=== PATIENT | male | born 1960 | race Caucasian/White ===

== ENCOUNTER 2023-08-16 10:44 | Outpatient (CLI) | payer MEDICAID | END 2023-08-16 23:59 | disposition home or self-care (01) | LOC: RT 10:44 | PROVIDERS: ATTEND Family Medicine | DX: J44.1 Chronic obstructive pulmonary disease with (acute) exacerbation (principal) | CPT/HCPCS: 94010 ==

== ENCOUNTER → 2023-08-22 | Outpatient (CLI) | payer MEDICAID | END | disposition home or self-care (01) | LOC: RAD 15:15 → EDUNIT# 16:00 | PROVIDERS: ATTEND Family Medicine | DX: K40.90 Unilateral inguinal hernia, without obstruction or gangrene, not specified as recurrent (principal); N43.2 Other hydrocele | CPT/HCPCS: 76881 ==

== ENCOUNTER 2023-12-05 07:00 | Day surgery (SDC) | payer MEDICAID ==
[2023-11-28 10:59] LABS: EOSINOPHILS # (AUTO) 0.1 X10'3 (0-0.9); LYMPHOCYTES # (AUTO) 0.8 X10'3 (1.1-4.8); MEAN CORPUSCULAR HEMOGLOBIN 30.8 PG (27.0-31.0); MONOCYTES # (AUTO) 0.4 X10'3 (0-0.9); NEUTROPHILS # (AUTO) 3.5 X10'3 (1.8-7.7)
[2023-11-28 11:01] LABS: EOSINOPHILS % (AUTO) 2.9 % (0-6); MEAN CORPUSCULAR HGB CONC 34.5 g/dL (33.0-36.5); MEAN CORPUSCULAR VOLUME 89.3 FL (78-98); MONOCYTES % (AUTO) 8.7 % (2-12); NEUTROPHILS % (AUTO) 71.4 % (42-75); PRE OP HEMATOCRIT 49.6 % (42.0-52.0); PRE OP HEMOGLOBIN 17.1 g/dL (14.0-17.9); PRE OP PLATELET COUNT 213 X10'3 (140-440); PRE OP WHITE BLOOD COUNT 4.9 10'3 (4.8-10.8); RED BLOOD COUNT 5.55 X10'6 (4.70-6.10); RED CELL DISTRIBUTION WIDTH 13.3 % (11.5-14.5)
[2023-11-28 11:28] LABS: ALBUMIN 4.2 G/DL (3.4-5.0); ALBUMIN/GLOBULIN RATIO 1.2 (1.1-1.5); ALKALINE PHOSPHATASE 88 IU/L (46-116); BLOOD UREA NITROGEN 11 MG/DL (7-18); BUN/CREATININE RATIO 12.8 (10.0-20.0); CALCIUM 9.3 MG/DL (8.5-10.1); CHLORIDE 107 MMOL/L (99-107); CREATININE 0.86 MG/DL (0.60-1.10); PRE OP ANION GAP 5 (8-16); PRE OP AST 35 U/L (10-37); PRE OP GLUCOSE 94 MG/DL (70-104); PRE OP POTASSIUM 4.4 MMOL/L (3.4-5.1); PRE OP SODIUM 142 MMOL/L (135-145); TOTAL CARBON DIOXIDE 29.8 MMOL/L (24-32); TOTAL PROTEIN 7.6 G/DL (6.4-8.2); eGFR 90 ML/MIN
[2023-11-28 11:31] LABS: PRE OP ALT 85 U/L (30-65)
[~2023-12-05] VITALS: Ht 175.3 cm; Wt 86.0 kg
[2023-12-05] VITALS (20 sets, daily range): BP systolic 121–173; BP diastolic 81–108; PULSE 82–98; RESP 12–18; TEMP 98.4; O2SAT 90–99
[2023-12-05] MEDS: cefazolin 2gm/D5W 100mL 100 ML IV ONE (05:30)
[~2023-12-05 07:00] MED LIST: ALBU8HFA INH
[2023-12-05] MEDS: famotidine 20mg tablet PO ONE (07:58)
[2023-12-05] MEDS: ringers solution, lacted 1,000 ML IV SCH (07:58)
[2023-12-05] MEDS ORDERED: propofol inj 20 ML IV ONE (10:16)
[2023-12-05] MEDS ORDERED: rocuronium 10mg/ml inj IV ONE (10:16)
[2023-12-05] MEDS ORDERED: fentaNYL/PF 50MCG/1 ML 2ML syringe ONE (10:16)
[2023-12-05] MEDS ORDERED: midazolam 1 mg/ML 2ml injection ONE (10:16)
[2023-12-05] MEDS ORDERED: sevoflurane 250ml liquid IH ONE (10:21)
[2023-12-05] MEDS: BUPIVAcaine 2.5mg/ml inj 50ml vial (contains preservative) ONE (11:18)
[2023-12-05] MEDS: LIDOcaine 1% (10mg/ml)w/preservative inj. 20ml MDV ONE (11:19)
[2023-12-05] MEDS ORDERED: morphine 4 MG/ML inj SYRINge IV PRN (11:25)
[2023-12-05] MEDS ORDERED: ringers solution, lacted 1,000 ML IV SCH (11:25)
[2023-12-05] MEDS ORDERED: meperidine/PF 25mg/ml syringe IV PRN ×2 (11:25)
[2023-12-05] MEDS ORDERED: ondansetron/PF 4mg/2ml inj IV PRN (11:25)
[2023-12-05] MEDS ORDERED: morphine 2 MG/ML inj. syringe IV PRN (11:25)
[2023-12-05] MEDS ORDERED: proCHLORperazine 10 MG/2 ml inj IV PRN (11:25)
[2023-12-05] MEDS ORDERED: ondansetron/PF 4mg/2ml inj ONE (11:50)
[2023-12-05] MEDS ORDERED: dexamethasone sod phosphate 4mg/ml inj. ONE (11:50)
[2023-12-05] MEDS ORDERED: neostigmine methylsulfate 1 MG/ML 10ml vial ONE (11:51)
[2023-12-05] MEDS ORDERED: glycopyrrolate 0.2mg/ml inj ONE (11:52)
[2023-12-05] MEDS ORDERED: sugammadex 200mg/2ml injection IV ONE (12:19)
[2023-12-05] MEDS: meperidine/PF 25mg/ml syringe IV PRN (12:34)
[2023-12-05] MEDS: acetaminophen 1,000mg/100ml IV 100 ML IV SCH (14:32)
[2023-12-05] MEDS: ketorolac trometh 30MG/ML vial 30 MG/ML VIAL IV ONE (14:32)
[2023-12-05] MEDS: HYDROcodone/acetaminophen 5mg/325mg tablet PO PRN (15:15)
== END 2023-12-05 15:24 | disposition home or self-care (01) ==
LOC: SSTAY O 07:00 → PAS 15:24
PROVIDERS: ATTEND Surgery
DX: K42.0 Umbilical hernia with obstruction, without gangrene (principal); K40.90 Unilateral inguinal hernia, without obstruction or gangrene, not specified as recurrent; R94.31 Abnormal electrocardiogram [ECG] [EKG]; J44.9 Chronic obstructive pulmonary disease, unspecified; Z79.899 Other long term (current) drug therapy; Z98.890 Other specified postprocedural states; Z91.030 Bee allergy status; Z80.0 Family history of malignant neoplasm of digestive organs; Z82.49 Family history of ischemic heart disease and other diseases of the circulatory system
CPT/HCPCS: 36415; 49592; 49650; 71046; 80053; 82948; 85025; 93005; C1781; J0131; J0690; J1100; J1885; J2175; J2250; J2405; J2704; J2710; J3010; J3490; J7030; J7120; S2900; Z7506; Z7508; Z7512; A4215; A4615; A4618